=== PATIENT | female | born 1935 | race Two or more races ===

== ENCOUNTER 2023-03-26 16:17 | Inpatient (IN) | payer MEDICARE, OTHER ==
[~2023-03-26] VITALS: Ht 154.9 cm; Wt 50.3 kg
[2023-03-26] MEDS ORDERED: OXYB5TAB16 PO (16:38)
[2023-03-26] MEDS ORDERED: PANT40TA49 PO (16:38)
[2023-03-26] MEDS ORDERED: CARV3.122 PO (16:38)
[2023-03-26] MEDS ORDERED: MEMA5TAB42 PO (16:38)
[2023-03-26] MEDS ORDERED: DONE5TAB34 PO (16:38)
[2023-03-26] MEDS ORDERED: MIRT-90 PO (16:38)
[2023-03-26] MEDS ORDERED: MAGNESIUM HYDROXIDE 30 ML UDC PO PRN (18:00)
[2023-03-26] MEDS ORDERED: MAG HYDROX/AL HYDROX/SIMETH 30 ML UDC PO PRN (18:00)
[2023-03-26] MEDS ORDERED: TEMAZEPAM 7.5 MG CAPSULE PO PRN (18:00)
[2023-03-26] MEDS ORDERED: BLOOD SUGAR DIAGNOSTIC 1 EACH STRIP IN ONE (18:00)
[2023-03-26 18:38] VITALS: BP 141/62; TEMP 97.2; O2SAT 97
[2023-03-26 20:00] VITALS: BP 129/82; TEMP 98.2
[2023-03-26] MEDS ORDERED: MIRTAZAPINE 15 MG TABLET PO SCH (22:00)
[2023-03-27] MEDS: ENSURE ENLIVE CHOC 237 ML CAN PO SCH ×2 (09:09→16:02)
[2023-03-27] MEDS: PANTOPRAZOLE 40 MG TABLET.DR PO SCH (09:10)
[2023-03-27] MEDS: OXYBUTYNIN CHLORIDE 5 MG TABLET PO SCH ×2 (09:10→16:04)
[2023-03-27] MEDS: CARVEDILOL 3.125 MG TABLET PO SCH ×2 (09:11→20:09)
[2023-03-27] MEDS: risperiDONE 0.25 MG TABLET PO SCH ×2 (12:00→20:09)
[2023-03-27] MEDS: clonazePAM 0.5 MG TABLET PO SCH ×2 (12:10→22:52)
[2023-03-27 15:58] VITALS: BP 130/66; TEMP 98; O2SAT 98
[2023-03-27] MEDS: DIVALPROEX SODIUM 125 MG CAP.SPRINK PO SCH (16:04)
[2023-03-27 20:00] VITALS: BP 148/74; TEMP 97; O2SAT 97
[2023-03-28 08:00] VITALS: BP 142/74; TEMP 98.1; O2SAT 99
[2023-03-28] MEDS: PANTOPRAZOLE 40 MG TABLET.DR PO SCH (08:04)
[2023-03-28] MEDS: DIVALPROEX SODIUM 125 MG CAP.SPRINK PO SCH ×2 (08:04→16:58)
[2023-03-28] MEDS: ENSURE ENLIVE CHOC 237 ML CAN PO SCH ×2 (08:04→17:00)
[2023-03-28] MEDS: risperiDONE 0.25 MG TABLET PO SCH ×2 (08:04→20:06)
[2023-03-28] MEDS: CARVEDILOL 3.125 MG TABLET PO SCH ×2 (08:05→20:06)
[2023-03-28] MEDS: OXYBUTYNIN CHLORIDE 5 MG TABLET PO SCH ×2 (08:05→16:58)
[2023-03-28 08:08] VITALS: BP 142/79; TEMP 98.1; O2SAT 99
[2023-03-28] MEDS: clonazePAM 0.5 MG TABLET PO SCH ×2 (11:57→21:11)
[2023-03-28 15:59] VITALS: BP 146/66; TEMP 98.5
[2023-03-28 20:00] VITALS: BP 132/67; TEMP 97.9; O2SAT 98
[2023-03-29] MEDS: PANTOPRAZOLE 40 MG TABLET.DR PO SCH (07:41)
[2023-03-29 08:00] VITALS: BP 144/70; TEMP 98.7; O2SAT 100
[2023-03-29] MEDS: OXYBUTYNIN CHLORIDE 5 MG TABLET PO SCH ×2 (08:42→16:57)
[2023-03-29] MEDS: risperiDONE 0.25 MG TABLET PO SCH (08:43)
[2023-03-29] MEDS: DIVALPROEX SODIUM 125 MG CAP.SPRINK PO SCH (08:43)
[2023-03-29] MEDS: CARVEDILOL 3.125 MG TABLET PO SCH ×2 (08:44→20:20)
[2023-03-29] MEDS: ENSURE ENLIVE CHOC 237 ML CAN PO SCH ×2 (09:38→16:57)
[2023-03-29 10:36] LABS: BASOPHILS % (AUTO) 0.7 % (0.0-2.0); EOSINOPHILS # (AUTO) 0.1 K/uL (0.0-0.7); EOSINOPHILS % (AUTO) 1.3 % (0.0-6.0); HEMATOCRIT 37 % (33-45); HEMOGLOBIN 12.5 g/dL (11.5-14.8); LYMPHOCYTES # (AUTO) 1.8 K/uL (0.8-4.8); LYMPHOCYTES % (AUTO) 27.1 % (20.0-44.0); MEAN CORPUSCULAR HEMOGLOBIN 32 PG (26.0-33.0); MEAN CORPUSCULAR HGB CONC 34 g/dl (31.0-36.0); MEAN CORPUSCULAR VOLUME 94 fL (82-100); MONOCYTES # (AUTO) 0.4 K/uL (0.1-1.30); MONOCYTES % (AUTO) 5.8 % (2.0-12.0); NEUTROPHILS # (AUTO) 4.3 K/uL (1.8-8.9); NEUTROPHILS % (AUTO) 65.1 % (43.0-81.0); PLATELET COUNT (AUTO) 209 K/uL (150-450); RED BLOOD CELL COUNT(AUTO) 3.93 MIL/uL (4.0-5.2); RED CELL DISTRIBUTION WIDTH 13.1 % (11.5-15.0); WHITE BLOOD COUNT (AUTO) 6.6 K/uL (4.3-11.0)
[2023-03-29 13:56] LABS: THYROID STIMULATING HORMONE 2.026 uIU/mL (0.358-3.74)
[2023-03-29 14:49] LABS: CREATININE 0.9 mg/dL (0.6-1.3); POTASSIUM 3.8 mmol/L (3.5-5.1)
[2023-03-29 15:02] LABS: APPEARANCE,URINE CLEAR (CLEAR); BILIRUBIN,URINE 1+ (NEGATIVE); BLOOD, URINE NEGATIVE Ery/uL (NEGATIVE); COLOR,URINE ORANGE (YELLOW); KETONES,URINE NEGATIVE (NEGATIVE); LEUKOCYTE ESTERASE ,URINE 1+ (NEGATIVE); NITRITE, URINE NEGATIVE (NEGATIVE); PROTEIN,URINE 1+ mg/dl (NEGATIVE); UGLUCOSE NEGATIVE (NEGATIVE); UROBILINOGEN,URINE 0.2 EU/dL (0.2)
[2023-03-29 15:37] LABS: ADD URINE CULTURE YES; BACTERIA,URINE Rare /HPF (None Seen); RBC,URINE 0-2 /HPF (0-2); SQUAMOUS EPITHELIAL CELL,UR None Seen /HPF (None Seen); WBC,URINE 51-80 /HPF (0-3)
[2023-03-29 15:38] LABS: CALCIUM OXALATE CRYSTALS,UR Few /HPF (None Seen); MUCUS,URINE Moderate /LPF (None Seen)
[2023-03-29 16:00] VITALS: BP 113/48; TEMP 98.1; O2SAT 100
[2023-03-29 20:27] VITALS: BP 123/61; TEMP 97.7; O2SAT 97
[2023-03-30] MEDS: NITROFURANTOIN/MONOHYDRATE MACROCRYSTALS 100 MG CAPSULE PO SCH ×3 (03:03→20:26)
[2023-03-30] MEDS: ENSURE ENLIVE CHOC 237 ML CAN PO SCH ×2 (08:17→16:59)
[2023-03-30] MEDS: PANTOPRAZOLE 40 MG TABLET.DR PO SCH (08:18)
[2023-03-30] MEDS: OXYBUTYNIN CHLORIDE 5 MG TABLET PO SCH ×3 (08:18→17:00)
[2023-03-30] MEDS: CARVEDILOL 3.125 MG TABLET PO SCH ×2 (08:19→20:24)
[2023-03-30] MEDS: risperiDONE 0.25 MG TABLET PO SCH (08:20)
[2023-03-30] MEDS: DIVALPROEX SODIUM 125 MG CAP.SPRINK PO SCH (08:20)
[2023-03-30 09:09] VITALS: BP 143/58; TEMP 98; O2SAT 98
[2023-03-30 15:23] VITALS: BP 135/70; TEMP 97.4; O2SAT 99
[2023-03-30] MEDS: hydrOXYzine PAMOATE 25 MG CAPSULE PO PRN (18:36)
[2023-03-30 19:56] VITALS: BP 125/55; TEMP 98.2; O2SAT 100
[2023-03-31] MEDS: ACETAMINOPHEN 325 MG TABLET PO PRN ×2 (01:48→10:00)
[2023-03-31 08:00] VITALS: BP 114/67; TEMP 98; O2SAT 97
[2023-03-31] MEDS: ENSURE ENLIVE CHOC 237 ML CAN PO SCH ×2 (08:00→17:25)
[2023-03-31] MEDS: OXYBUTYNIN CHLORIDE 5 MG TABLET PO SCH ×2 (08:26→17:23)
[2023-03-31] MEDS: NITROFURANTOIN/MONOHYDRATE MACROCRYSTALS 100 MG CAPSULE PO SCH ×2 (08:26→21:26)
[2023-03-31] MEDS: risperiDONE 0.25 MG TABLET PO SCH ×2 (08:26→17:23)
[2023-03-31] MEDS: DIVALPROEX SODIUM 125 MG CAP.SPRINK PO SCH (08:26)
[2023-03-31] MEDS: PANTOPRAZOLE 40 MG TABLET.DR PO SCH (08:26)
[2023-03-31] MEDS: CARVEDILOL 3.125 MG TABLET PO SCH ×2 (08:27→21:26)
[2023-03-31] MEDS: Z GUARD REMEDY 4 OZ OINT TP SCH ×2 (11:50→17:26)
[2023-03-31] MEDS: LIDOCAINE 5% (PATCH) 1 EA PATCH TP SCH (11:52)
[2023-03-31 16:00] VITALS: BP 159/74; TEMP 98.6; O2SAT 97
[2023-03-31 20:41] VITALS: BP 141/62; TEMP 96.9; O2SAT 97
[2023-03-31] MEDS: MIRTAZAPINE 15 MG TABLET PO SCH (21:26)
[2023-04-01] MEDS: ACETAMINOPHEN 325 MG TABLET PO PRN ×2 (00:07→22:56)
[2023-04-01] MEDS: PANTOPRAZOLE 40 MG TABLET.DR PO SCH (07:52)
[2023-04-01] MEDS: ENSURE ENLIVE CHOC 237 ML CAN PO SCH ×2 (07:54→16:22)
[2023-04-01 08:00] VITALS: BP 133/69; TEMP 98.6; O2SAT 99
[2023-04-01] MEDS: NITROFURANTOIN/MONOHYDRATE MACROCRYSTALS 100 MG CAPSULE PO SCH (08:06)
[2023-04-01] MEDS: CARVEDILOL 3.125 MG TABLET PO SCH ×2 (08:06→21:55)
[2023-04-01] MEDS: DIVALPROEX SODIUM 125 MG CAP.SPRINK PO SCH (08:06)
[2023-04-01] MEDS: risperiDONE 0.25 MG TABLET PO SCH ×2 (08:06→16:22)
[2023-04-01] MEDS: OXYBUTYNIN CHLORIDE 5 MG TABLET PO SCH ×2 (08:06→16:22)
[2023-04-01] MEDS: Z GUARD REMEDY 4 OZ OINT TP SCH ×2 (08:07→16:26)
[2023-04-01] MEDS: LIDOCAINE 5% (PATCH) 1 EA PATCH TP SCH (11:38)
[2023-04-01] MEDS: clonazePAM 0.5 MG TABLET PO SCH (14:41)
[2023-04-01 16:00] VITALS: BP 127/65; TEMP 97.9; O2SAT 98
[2023-04-01] MEDS: MIRTAZAPINE 15 MG TABLET PO SCH (21:56)
[2023-04-02 08:00] VITALS: BP 154/78; TEMP 98.6; O2SAT 97
[2023-04-02] MEDS: ENSURE ENLIVE CHOC 237 ML CAN PO SCH ×2 (08:28→16:55)
[2023-04-02] MEDS: PANTOPRAZOLE 40 MG TABLET.DR PO SCH (08:30)
[2023-04-02] MEDS: risperiDONE 0.25 MG TABLET PO SCH ×2 (08:30→16:56)
[2023-04-02] MEDS: CARVEDILOL 3.125 MG TABLET PO SCH ×2 (08:30→20:49)
[2023-04-02] MEDS: DIVALPROEX SODIUM 125 MG CAP.SPRINK PO SCH (08:30)
[2023-04-02] MEDS: OXYBUTYNIN CHLORIDE 5 MG TABLET PO SCH ×2 (08:30→16:56)
[2023-04-02] MEDS: Z GUARD REMEDY 4 OZ OINT TP SCH ×2 (08:31→16:55)
[2023-04-02] MEDS: LIDOCAINE 5% (PATCH) 1 EA PATCH TP SCH (10:52)
[2023-04-02 16:00] VITALS: BP 140/65; TEMP 98; O2SAT 98
[2023-04-02 20:00] VITALS: BP_SYST 134; BP_SYST 151; BP_DIAS 66; TEMP 98.5; O2SAT 100
[2023-04-02] MEDS: ACETAMINOPHEN 325 MG TABLET PO PRN (20:15)
[2023-04-02] MEDS: MIRTAZAPINE 15 MG TABLET PO SCH (21:25)
[2023-04-03 08:00] VITALS: BP 114/61; TEMP 97.8; O2SAT 98
[2023-04-03] MEDS: Z GUARD REMEDY 4 OZ OINT TP SCH ×2 (08:44→16:52)
[2023-04-03] MEDS: ENSURE ENLIVE 237 ML LIQUID (VANILLA) PO SCH ×2 (08:44→16:52)
[2023-04-03] MEDS: OXYBUTYNIN CHLORIDE 5 MG TABLET PO SCH ×2 (08:56→16:53)
[2023-04-03] MEDS: DIVALPROEX SODIUM 125 MG CAP.SPRINK PO SCH (08:56)
[2023-04-03] MEDS: PANTOPRAZOLE 40 MG TABLET.DR PO SCH (08:56)
[2023-04-03] MEDS: CARVEDILOL 3.125 MG TABLET PO SCH ×2 (08:56→20:26)
[2023-04-03] MEDS: risperiDONE 0.25 MG TABLET PO SCH ×2 (08:56→16:53)
[2023-04-03] MEDS: clonazePAM 0.5 MG TABLET PO SCH (12:18)
[2023-04-03] MEDS: LIDOCAINE 5% (PATCH) 1 EA PATCH TP SCH (12:22)
[2023-04-03 16:00] VITALS: BP 115/61; TEMP 97.9; O2SAT 95
[2023-04-03] MEDS: ACETAMINOPHEN 325 MG TABLET PO PRN (17:56)
[2023-04-03] MEDS: MIRTAZAPINE 15 MG TABLET PO SCH (21:05)
[2023-04-03 22:02] VITALS: BP 113/56; TEMP 97.8; O2SAT 100
[2023-04-04] MEDS: hydrOXYzine PAMOATE 25 MG CAPSULE PO PRN ×2 (03:03→09:13)
[2023-04-04] MEDS: ACETAMINOPHEN 325 MG TABLET PO PRN (04:50)
[2023-04-04 08:00] VITALS: BP 145/56; TEMP 98.1; O2SAT 100
[2023-04-04] MEDS: ENSURE ENLIVE 237 ML LIQUID (VANILLA) PO SCH (08:23)
[2023-04-04] MEDS: DIVALPROEX SODIUM 125 MG CAP.SPRINK PO SCH (08:23)
[2023-04-04] MEDS: PANTOPRAZOLE 40 MG TABLET.DR PO SCH (08:23)
[2023-04-04] MEDS: risperiDONE 0.25 MG TABLET PO SCH (08:23)
[2023-04-04] MEDS: OXYBUTYNIN CHLORIDE 5 MG TABLET PO SCH (08:23)
[2023-04-04 08:24] VITALS: BP 145/56
[2023-04-04] MEDS: Z GUARD REMEDY 4 OZ OINT TP SCH (08:24)
[2023-04-04] MEDS: CARVEDILOL 3.125 MG TABLET PO SCH (08:24)
[2023-04-04] MEDS: LIDOCAINE 5% (PATCH) 1 EA PATCH TP SCH (12:14)
== END 2023-04-04 15:00 | DRG 885 ==
LOC: GPS 16:21
PROVIDERS: ADMIT Psychiatry & Neurology Psychosomatic Medicine; ATTEND Internal Medicine
DX: F31.9 Bipolar disorder, unspecified (principal); F03.94 Unspecified dementia, unspecified severity, with anxiety; F03.92 Unspecified dementia, unspecified severity, with psychotic disturbance; F03.93 Unspecified dementia, unspecified severity, with mood disturbance; F03.918 Unspecified dementia, unspecified severity, with other behavioral disturbance; N39.0 Urinary tract infection, site not specified; F41.9 Anxiety disorder, unspecified; Z73.6 Limitation of activities due to disability; R53.1 Weakness; R27.8 Other lack of coordination; Z91.81 History of falling; I10 Essential (primary) hypertension; B96.89 Other specified bacterial agents as the cause of diseases classified elsewhere; Z91.199 Patient's noncompliance with other medical treatment and regimen due to unspecified reason; Z88.0 Allergy status to penicillin; G89.29 Other chronic pain; Z79.899 Other long term (current) drug therapy
CPT/HCPCS: 36415; 72110-TC; 80048-TC; 80061-TC; 81001; 82607-TC; 83735-TC; 84443-TC; 85025-TC; 87086-TC; 97116-TC; 97530-TC; Q0177